=== PATIENT | male | born 1960 | race Caucasian/White ===

== ENCOUNTER 2020-02-05 12:09 | Outpatient (NON) | payer BC, SELFPAY ==
[2020-02-06 01:01] LABS: SARS-CoV-2 RNA PCR Positive
== END 2020-02-05 12:10 ==
PROVIDERS: PCP Internal Medicine; Visit Provider Internal Medicine
DX: R68.89 Other general symptoms and signs (principal); U07.1 COVID-19
CPT/HCPCS: 87635; C9803; U0003

== ENCOUNTER 2020-03-29 07:32 | Outpatient (CLI) | payer BC, SELFPAY ==
--- NOTE | ~2020-03-29 | CT_ITS ---
EXAMINATION: CT abdomen pelvis wo con EXAM DATE: 03/29/2020 07:51 INDICATION: Left flank pain for months. TECHNIQUE: Spiral CT of the abdomen and pelvis was performed without contrast. Axial, coronal and sag ittal images were reviewed. The dose-length product (DLP) for this examination was 500.08 mGy-cm. T he exposure was tailored according to patient size (auto mA exposure control), and iterative reconstr uction (ASIR) was used as additional dose reduction technique. There is no prior study for compariso n. FINDINGS: Several punctate bilateral calyceal stones. No ureteral stones or hydronephrosis. There is mild prostatomegaly. The bladder is unremarkable. The liver, spleen, adrenal glands and pancreas ar e unremarkable. Gallbladder is unremarkable. No biliary obstruction. There is no retroperitoneal o r pelvic lymphadenopathy. There is mild scattered arteriosclerotic disease. Small umbilical and ing uinal fat-containing hernias. The appendix is normal. The stomach and small bowel are unremarkable. There is expected amount of c olonic stool. No free intraperitoneal gas. The heart is normal in size. There are no pericardial or pleural effusions. Punctate bilateral basilar calcified granulomas. The bones are unremarkable. IMPRESSION: 1. Punctate bilateral nonobstructing calyceal stones. No acute findings. 2. Small fat-containing hernias. Reviewed, dictated and finalized at location A. [facility] [employer] [facility]
== END 2020-03-29 07:33 | disposition home or self-care (01) ==
LOC: ANHIMG 07:34
PROVIDERS: Family Provider Internal Medicine; PCP Internal Medicine; Visit Provider Internal Medicine
DX: R10.9 Unspecified abdominal pain (principal); N20.0 Calculus of kidney; K42.9 Umbilical hernia without obstruction or gangrene; K40.90 Unilateral inguinal hernia, without obstruction or gangrene, not specified as recurrent
CPT/HCPCS: 74176

== ENCOUNTER 2022-04-21 08:00 | Outpatient (NON) | payer BC, SELFPAY | END 2022-04-21 08:01 | disposition home or self-care (01) | PROVIDERS: PCP Internal Medicine; Visit Provider Nurse Practitioner | DX: D49.2 Neoplasm of unspecified behavior of bone, soft tissue, and skin (principal) | CPT/HCPCS: 88305 ==

== ENCOUNTER 2022-05-22 01:29 | Day surgery (SDC) | payer BC, SELFPAY ==
[2022-05-22 09:51] VITALS: BP 122/94; PULSE 81; RESP 16; TEMP 36.6; O2SAT 98
[2022-05-22] MEDS: LACTATED RINGERS 1,000 ML 150 ML IV CONT (10:00)
--- NOTE | 2022-05-22 10:02 | WPDANESEPPF ---
Anes - Initial Pre Proc Eval Procedure: Operation Date: 05/22/22 11:00 Proposed Procedures p Screening Colonoscopy - Riky Ramos MD Date/Time: 05/22/22 10:02 Surgeon: Riky Ramos MD Pre Op Diagnosis: neoplasm screening Patient Data Age: 61 Gender: M Height: 1.65 m Weight: 78.2 kg Last Vital Signs Temp 36.6 C 05/22/22 09:51 Pulse 81 05/22/22 09:51 Resp 16 05/22/22 09:51 BP 122/94 H 05/22/22 09:51 Pulse Ox 98 05/22/22 09:51 O2 Del Method Room Air 05/22/22 09:51 Allergies Allergy/AdvReac Type Severity Reaction Status Date / Time No Known Allergies Allergy Mild Verified 05/22/22 09:50 Home Medications Medication Instructions Recorded Confirmed Type omega-3 fatty acids 1,000 mg 1,400 mg PO DAILY 04/15/21 05/12/22 History capsule (Fish Oil Concentrate) rosuvastatin 40 mg tablet 40 mg PO DAILY 05/12/22 05/12/22 History Patient hx anesthesia problems: none Family hx anesthesia problems: none Results Review: All pre-operative results and documents have been reviewed as part of the pre-operative evaluation. [facility] Past Medical History Medical History (Updated 04/29/22 @ 13:07 by Onel Hawkins APRN) High cholesterol Family History Family History Father Family history of coronary artery disease Cerebrovascular accident Family history of heart disease in male family member before age 55 Social History Social History Smoking status: Never smoker Alcohol intake: current Alcohol use details: 3x week Substance use: current Substance use type: marijuana Other substance usage details: limited Lack of Transportation: No Lack of Food: Never True Current Housing: I Have Housing Concerned About Future Housing: No Difficulty Paying Gas/Electric Bills: No Difficulty Paying for Meds: No Currently Unemployed: No Education: High School Diploma/GED Difficulty w/ Childcare or Family Care: No Living arrangements: alone Spiritual care concerns: No Anes - Eval Final PreProcedure Day of Procedure 05/22/22 10:02 Patient weight: overweight Heart: regular rate and rhythm Lungs: clear to auscultation Airway: Mallampati scale class II Neurological: alert and oriented Last oral intake: >/= 8 hours ASA classification: III Emergent: no Anesthetic plan: proceed Anesthesia type and monitoring: general GIVS and standard monitoring Results Review: All pre-operative results and documents have been reviewed as part of the pre-operative evaluation. Informed Consent: The patient's anesthetic plan and its attendant risks and benefits were discussed with the patient/family/POA. Questions were solicited and answers provided to the satisfaction of the patient/family/POA.
--- NOTE | 2022-05-22 10:16 | PM.HPGS ---
History of Present Illness History of Present Illness Consent: Risks, benefits, and alternatives have been discussed and questions answered. Patient agrees to proceed with procedure. Chief complaint: neoplasm screening Narrative: Miguel Davis is a 61 year old male Presents for screening colonoscopy. Patient's current weight appetite and bowel movements are normal. Patient denies abdominal pain. He has had no bleeding. Previous colonoscopy 10 years ago was unremarkable. Review of Systems Review of Systems: Review of systems noncontributory. [facility] Past Medical History Medical History (Updated 04/29/22 @ 13:07 by Onel Hawkins APRN) High cholesterol Family History Family History Father Family history of coronary artery disease Cerebrovascular accident Family history of heart disease in male family member before age 55 Social History Social History Smoking status: Never smoker Alcohol intake: current Alcohol use details: 3x week Substance use: current Substance use type: marijuana Other substance usage details: limited Lack of Transportation: No Lack of Food: Never True Current Housing: I Have Housing Concerned About Future Housing: No Difficulty Paying Gas/Electric Bills: No Difficulty Paying for Meds: No Currently Unemployed: No Education: High School Diploma/GED Difficulty w/ Childcare or Family Care: No Living arrangements: alone Spiritual care concerns: No Meds Home Medications and Allergies Home Medications Medication Instructions Recorded Confirmed Type omega-3 fatty acids 1,000 mg 1,400 mg PO DAILY 04/15/21 05/12/22 History capsule (Fish Oil Concentrate) rosuvastatin 40 mg tablet 40 mg PO DAILY 05/12/22 05/12/22 History Allergies Allergy/AdvReac Type Severity Reaction Status Date / Time No Known Allergies Allergy Mild Verified 05/22/22 09:50 Vital Signs Vital Signs - 24 hr 05/22/22 09:51 Temperature 97.8 F Pulse Rate 81 Respiratory Rate 16 Blood Pressure 122/94 H Pulse Oximetry 98 Oxygen Delivery Room Air Exam Narrative: Physical exam reveals patient be alert. Vital signs stable. HEENT exam is unremarkable. Patient is anicteric. Lungs are clear to auscultation and percussion. Heart is without murmur or extra sounds. Abdomen bowel sounds are present soft nontender with no organomegaly. Digital external rectal exam is normal. Assessment and Plan Assessment and plan (1) Screening for colon cancer: Code(s): Z12.11 - Encounter for screening for malignant neoplasm of colon Status: Acute Assessment and Plan: Patient presents today for screening colonoscopy. Appears to be at average risk for colon polyps. Further recommendations may be given after endoscopy.
[2022-05-22] MEDS: SIMETHICONE ORAL SUSPENSION 20 MG/0.3 ML 30 ML BOTTLE 0.6 ML IRRIGATION (10:49)
[2022-05-22 11:00] VITALS: BP 126/89; PULSE 89; RESP 25; TEMP 36.6; O2SAT 98
[2022-05-22 11:10] VITALS: BP 115/88; PULSE 77; RESP 20; TEMP 36.6; O2SAT 98
[2022-05-22 11:17] VITALS: BP 112/80; PULSE 78; RESP 22; TEMP 36.6; O2SAT 100
== END 2022-05-22 11:35 | disposition home or self-care (01) ==
PROVIDERS: PCP Internal Medicine; Visit Provider Internal Medicine Gastroenterology
PROC: 0DJD8ZZ Inspection of Lower Intestinal Tract, Via Natural or Artificial Opening Endoscopic (ICD-10-PCS; CPT 45378; principal; 2022-05-22 11:00)
DX: Z12.11 Encounter for screening for malignant neoplasm of colon (principal); D12.4 Benign neoplasm of descending colon; K64.8 Other hemorrhoids; E78.00 Pure hypercholesterolemia, unspecified; F12.90 Cannabis use, unspecified, uncomplicated
CPT/HCPCS: 45385; 88305; J2704; J7120

== ENCOUNTER 2023-09-29 07:11 | Emergency (ER) | payer BC, SELFPAY ==
[2023-09-29] VITALS (22 sets, daily range): BP systolic 136–173; BP diastolic 83–122; PULSE 62–83; RESP 15–25; TEMP 36.3–37.2; O2SAT 94–100
--- NOTE | ~2023-09-29 | XR_ITS ---
XR shoulder LT min 2V Ordering provider: Gallo Castaneda III, DO History: . POST REDUCTION . Comparison: September 29, 2023 FINDINGS: BONES: Possibility of bony fragment in the area of the acromion process cannot be excluded. Status po st reduction of the left shoulder. JOINT SPACES: The acromioclavicular joint is normal. The glenohumeral joint is normal. SOFT TISSUES: Normal. IMPRESSION: Status post reduction of the left shoulder. Possibility of fracture in the acromion process cannot be excluded. Reviewed, dictated and finalized at location A.
--- NOTE | ~2023-09-29 | XR_ITS ---
XR shoulder LT min 2V Ordering provider: Gallo Castaneda III, DO History: . trauma LT SHOULDER . Comparison: None. FINDINGS: BONES: A dislocation of the left shoulder is noted. No definite fractures seen. JOINT SPACES: The acromioclavicular joint shows osteoarthritic changes. The glenohumeral joint is nor mal. SOFT TISSUES: Normal. IMPRESSION: Anterior dislocation of the left shoulder. Consider MRI of the shoulder if there is concern for soft tissue internal derangement. Reviewed, dictated and finalized at location A. IMPRESSION: Anterior dislocation of the left shoulder. Consider MRI of the shoulder if there is concern for soft tissue internal deran sagar.
[2023-09-29] MEDS: Please add drug allergy info to patient profile. XX (07:24)
[2023-09-29] MEDS: fentaNYL CITRATE INJ (*CRX) 100 MCG/2 ML VIAL 50 MCG IV PUSH (07:24)
--- NOTE | 2023-09-29 07:30 | PC.NURSE ---
Ice offered to patient, patient refused
--- NOTE | 2023-09-29 07:31 | ED.UPPEXIN ---
HPI - Extremity Injury (Upper) General Chief Complaint: Extremity Injury, Upper Stated Complaint: dislocated shoulder Time Seen by Provider: 09/29/23 07:17 History of Present Illness HPI narrative: Pt presents with left shoulder pain and deformity after falling on shoulder off porch last night. Pt denies LOC or other injury. Related Data Allergies Allergy/AdvReac Type Severity Reaction Status Date / Time No Known Allergies Allergy Verified 09/29/23 07:23 Review of Systems Review of Systems: All systems reviewed & are unremarkable except as noted in HPI and below Exam Const: General: healthy appearing and no acute distress Nutritional Appearance: well nourished Orientation/consciousness: patient oriented x3 Limitations: no limitations HENMT: Head: normal to inspection Neck: Neck: normal visual inspection, no lymphadenopathy and no meningeal signs Chest: Chest palpation & inspection: normal inspection of the chest Resp: Effort & Inspection: normal respiratory effort Auscultation: clear to auscultation bilaterally Cardio: Rate: regular rate Rhythm: regular rhythm GI: GI Palp: Yes Soft to palpation and No Tenderness to palpation present (GI) Skin: General skin exam: normal color Rashes: no rashes Wounds: no wounds Neuro: General: patient oriented x3, moves all extremities, no meningeal signs and no focal motor deficits Speech: normal speech Extrem: Other: obvious deformity to left shoulder, sensation intact over deltoid and distal neurovascular intact and strength intact. Psych: Mental Status: mental status grossly normal Affect: normal affect Attitude: cooperative Course Vital Signs Vital signs: Vital Signs Blood Pressure 148/104 H 09/29/23 07:19 Pulse Oximetry 95 09/29/23 07:19 Temperature 98.2 F 09/29/23 10:44 Pulse Rate 83 09/29/23 10:44 Respiratory Rate 16 09/29/23 10:44 Blood Pressure 138/83 09/29/23 10:44 Pulse Oximetry 100 09/29/23 10:44 Oxygen Delivery Room Air 09/29/23 09:54 Oxygen Flow Rate 4 09/29/23 09:29 Procedures Orthopedic Joint Reduction Joint #1: Orthopedic Joint Reduction Date: 09/29/23 Orthopedic Joint Reduction Time: 09:20 Time Out Performed: Yes Side: left Joint Reduction Location: shoulder Analgesia: procedural sedation Pre-Procedure Neuro Vascular Exam: normal Shoulder Technique Used (if applicable): traction/counter-traction Technique used: traction/counter-traction Post-reduction neuro exam: intact Post-reduction vascular: intact Post Reduction X-Ray Obtained: Yes Splint Applied: Yes Patient Tolerated Procedure: well Procedural Sedation Procedural Sedation #1: Procedural Sedation Date: 09/29/23 Procedural Sedation Time: 09:20 Presedation Evaluation: dislocated left shoulder neurovasc intact. Pt has sleep apnea hx. Procedure: see procudure note Provider Performed: sedation and procedure Time Out: yes Informed Consent Obtained: yes Equipment in Room: bag and mask, capnography, boat repairer, crash cart, oxygen, pulse oximeter and suction Plan for Sedation: moderate sedation ASA Class: II Mallampati Classification: class III NPO Status: last solid food (hours ago) and last liquid food (hours ago) Pt. Educated on Procedural Sedation: Yes Re-evaluated immediately prior: Yes IV Etomidate dose (mg): 12 Patient Tolerated Procedure: well Complications: none Interventions: oxygen applied Total Sedation Time (min): 5 MDM - Extremity Injury (Upper) MDM Narrative Medical decision making narrative: fx vs dislocation of left shoulder. will give fentanyl so we can get x ray of shoulder. anterior dislocation. reduced easily with sedation. some question of acromion fx cannot be excluded on post reduction film. discussed with dr alonso
[2023-09-29] MEDS: MORPHINE SULFATE (*CRX) 2 MG/ML INJ IV PUSH (09:05)
[2023-09-29] MEDS: ETOMIDATE 20 MG/10 ML AMPUL 12 MG IV PUSH (09:23)
--- NOTE | 2023-09-29 09:33 | PC.NURSE ---
0924-12mg Etomidate given by provider Dr Castaneda
[2023-09-29] MEDS: SODIUM CHLORIDE 0.9% IV 1,000 ML 1000 ML (09:42)
== END 2023-09-29 10:46 | disposition home or self-care (01) ==
PROVIDERS: Emergency Provider Emergency Medicine; PCP Nurse Practitioner
DX: S43.015A Anterior dislocation of left humerus, initial encounter (principal); W13.8XXA Fall from, out of or through other building or structure, initial encounter
CPT/HCPCS: 23650; 73030; 96374; 96375; 99285; J2270; J3010; J7030

== ENCOUNTER 2023-10-25 07:46 | Outpatient (CLI) | payer BC, SELFPAY ==
--- NOTE | ~2023-10-25 | XR_ITS ---
XR shoulder LT min 2V Ordering provider: Sim Gonzales MD History: . S43.006A - Unspecified dislocation of unspecified shoulde... . Comparison: September 29, 2023. FINDINGS: BONES: No acute fracture or dislocation. Degenerative changes seen at the site of insertion of the juarez praspinatus. JOINT SPACES: The acromioclavicular joint is mild osteoarthritic changes. The glenohumeral joint is n ormal. SOFT TISSUES: Normal. IMPRESSION: No acute osseous abnormality left shoulder. . Reviewed, dictated and finalized at location A.
== END 2023-10-25 07:47 | disposition home or self-care (01) ==
PROVIDERS: PCP Nurse Practitioner; Visit Provider Orthopaedic Surgery
DX: S43.006A Unspecified dislocation of unspecified shoulder joint, initial encounter (principal); X58.XXXA Exposure to other specified factors, initial encounter
CPT/HCPCS: 73030